=== PATIENT | female | born 1975 | race Caucasian/White ===

== ENCOUNTER 2017-07-26 17:55 | Inpatient (IN) | payer OTHER ==
[2017-07-26] MEDS: DEXTROSE 5%-LACTATED RINGERS 1,000 ML IV SCH ×2 (18:25→18:54)
[2017-07-26] MEDS: DEXTROSE 5%-LACTATED RINGERS 1,000 ML IV ONE ×2 (18:25→18:55)
[2017-07-26] MEDS ORDERED: AMPICILLIN SODIUM 2 GM VIAL ONE (18:26)
[2017-07-26] MEDS ORDERED: BUTORPHANOL TARTRATE 1 MG/ML VIAL IVPUSH ONE (18:30)
[2017-07-26] MEDS ORDERED: PROMETHAZINE HCL 25 MG/1 ML VIAL IVPUSH ONE (18:30)
[2017-07-26] MEDS ORDERED: AMPICILLIN - 2 GM in SODIUM CHLORIDE 100 ML IVPB ONE (18:30)
[2017-07-26 18:47] VITALS: BMI 25.7
[2017-07-26 20:08] LABS: BASO % 0.2 % (0-2.0); HEMATOCRIT 38.2 % (32.4-45.2); HEMOGLOBIN 12.7 GM/dL (10.7-15.3); LYMPH % 8.1 % (8-40); MCH 27.8 pg (25.7-33.7); MCHC 33.1 g/dl (32.0-36.0); MEAN CELL VOLUME 83.9 fl (80-96); MEAN PLT VOLUME 7.3 fl (7.5-11.1); MONO % 2.2 % (3.8-10.2); NEUT % 89.5 % (42.8-82.8); PLATELET COUNT 255 K/MM3 (134-434); RBC 4.55 M/mm3 (3.60-5.2); RDW 13.6 % (11.6-15.6); WHITE BLOOD COUNT 17.5 K/mm3 (4.0-10.0)
[2017-07-26 20:09] LABS: RETICULOCYTES 2.01 % (0.5-1.5)
[2017-07-26 20:21] LABS: ANION GAP 15 (8-16); BLOOD UREA NITROGEN 9 mg/dL (7-18); CALCIUM 7.9 mg/dL (8.5-10.1); CHLORIDE 99 mmol/L (98-107); CO2 16 mmol/L (21-32); CREATININE 0.6 mg/dL (0.55-1.02); GLUCOSE,RANDOM 125 mg/dL (74-106); POTASSIUM 3.6 mmol/L (3.5-5.1); SODIUM 130 mmol/L (136-145); URIC ACID 4.9 mg/dL (2.6-7.2)
[2017-07-26 20:22] LABS: GAMMA GLUTAMYL TRANSPEPTIDASE 15 U/L (5-85); INR 0.93 (0.82-1.09); PROTHROMBIN TIME (PATIENT) 10.5 SEC (9.98-11.88); SGOT/AST 15 U/L (15-37); SGPT/ALT 16 U/L (12-78)
[2017-07-26 20:24] LABS: ACTIVATED PTT 30.8 SECONDS (26.9-34.4)
[2017-07-26] MEDS ORDERED: OXYTOCIN 30 UNITS in 0.9% NS 30 UNIT/500 ML INFUS.BAG IVPB ONE (20:43)
--- NOTE | 2017-07-26 20:55 | PN ---
Progress Note (short form) - Note Progress Note: 845 pm cx 8 cm 80 vx -2 arom, light mec , fhr cat 1, irrgular contraction, no progress for 2/1/2 hour pitocin rba discussed
--- NOTE | 2017-07-26 21:01 | HP ---
Past Medical History - Primary Care Physician PCP:: Olman Jo - Admission Chief Complaint: 38,3 weeks, labor, AMA History of Present Illness: 42 yo f edc by sono3 , 38.3 weeks, in labor, no rom, no bleeding , cx on admission 8 cm vx -3 mi, bulging , fhr cat 1, irregular contraction History Source: Patient Limitations to Obtaining History: Language Barrier - Past Medical History ...: 3 ...Para: 0 ...Term: 0 ...: 0 ...Spon : 2 ...Induced : 0 ...Multiple Gestation: 0 ...LMP: 10/29/16 ... Weeks Gestation by Dates: 38.3 ...EDC by Dates: 08/05/17 ...EDC by Sono: 08/05/17 Additional OB History: elevated i hr gct , 3 hr normal. positve quantiferon - Past Surgical History Hx Myomectomy: No Hx Transabdominal Cerclage: No - Smoking History Smoking history: Never smoked Have you smoked in the past 12 months: No - Alcohol/Substance Use Hx Alcohol Use: No - Social History History of Recent Travel: No Home Medications - Allergies Allergies/Adverse Reactions: Allergies Allergy/AdvReac Type Severity Reaction Status Date / Time No Known Allergies Allergy Verified 07/26/17 18:29 - Home Medications Home Medications: Ambulatory Orders Ferrous Sulfate [Feosol] 325 mg PO DAILY 07/26/17 Vit/Iron Fum/Folic AC [ Tablet] 1 tab PO DAILY 07/26/17 Review of Systems - Review of Systems Constitutional: reports: No Symptoms Eyes: reports: No Symptoms HENT: reports: No Symptoms Neck: reports: No Symptoms Cardiovascular: reports: No Symptoms Respiratory: reports: No Symptoms Gastrointestinal: reports: No Symptoms Genitourinary: reports: No Symptoms Breasts: reports: No Symptoms Reported Musculoskeletal: reports: No Symptoms Integumentary: reports: No Symptoms Neurological: reports: No Symptoms Endocrine: reports: No Symptoms Hematology/Lymphatic: reports: No Symptoms Psychiatric: reports: No Symptoms Physical Exam - Maternity Vital Signs: Vital Signs Temperature 98.5 F 07/26/17 20:00 Pulse Rate 115 H 07/26/17 20:00 Respiratory Rate 20 07/26/17 20:00 Blood Pressure 152/97 07/26/17 20:00 O2 Sat by Pulse Oximetry (%) Constitutional: Yes: Well Nourished, No Distress, Calm Eyes: Yes: WNL, Conjunctiva Clear, EOM Intact HENT: Yes: WNL, Atraumatic, Normocephalic Neck: Yes: WNL, Supple, Trachea Midline Cardiovascular: Yes: WNL, Regular Rate and Rhythm Breast(s): Yes: WNL - Abdominal Exam/OB Number of Fetuses: Single Presentation: Vertex Contractions: Yes Regularity: Irregular Intensity: Mod/Strong Monitor Mode: External Heart Rate Location: LLQ Accelerations: Uniform Decelerations: None - Vaginal Exam/OB Vaginal Bleediing: No Speculum Exam: No Dilatation (cm): 8 cm Effacement (%): 80 Amniotic Membrane Status: Bulging Presentation: Vertex/Position Station: -3 - Physical Exam Edema: LLE: Trace, RLE: Trace Deep Tendon Reflex Grade: Normal +2 - Labs Lab Results: CBC, BMP 07/26/17 19:30 07/26/17 19:30 Hemorrhage Risk Assessment - Risk Factors Medium Risk Factors: Yes: None High Risk Factors: Yes: None Risk Score: 1 Risk Level: Medium Risk Problem List - Problems (1) with 38 completed weeks gestation Code(s): Z3A.38 - 38 WEEKS GESTATION OF (2) Advanced maternal age (AMA), 40 years or greater Code(s): VQY0365 - (3) Labor established Code(s): PNK9516 - Assessment/Plan plan admit for vaginal delivery
[2017-07-26] MEDS ORDERED: OXYTOCIN 30 UNITS in 0.9% NS 30 UNIT/500 ML INFUS.BAG IVPB SCH (21:30)
[2017-07-26] MEDS: AMPICILLIN - 1 GM in SODIUM CHLORIDE 100 ML IVPB SCH (22:00)
[2017-07-26] MEDS ORDERED: AMPICILLIN SODIUM 1 GM VIAL ONE (22:15)
[2017-07-26] MEDS ORDERED: BUTORPHANOL TARTRATE 1 MG/ML VIAL ONE ×2 (23:55)
[2017-07-26] MEDS ORDERED: PROMETHAZINE HCL 25 MG/1 ML VIAL ONE (23:58)
[2017-07-27] MEDS: AMPICILLIN - 1 GM in SODIUM CHLORIDE 100 ML IVPB SCH ×2 (02:00→06:27)
[2017-07-27] MEDS ORDERED: AMPICILLIN SODIUM 1 GM VIAL ONE (02:15)
[2017-07-27] MEDS ORDERED: ceFAZolin SODIUM 1 GM VIAL ONE (02:59)
[2017-07-27] MEDS ORDERED: ELECTROLYTE-148 SOLN 500 ML IV ONE (03:00)
[2017-07-27] MEDS ORDERED: CITRIC ACID/SODIUM CITRATE 30 ML UNIT-DOSE CUP PO ONE (03:00)
[2017-07-27] MEDS ORDERED: OXYTOCIN 20 UNITS in 0.9% NS 20 UNIT/1,000 ML INFUS.BAG IV ONE (03:05)
[2017-07-27] MEDS ORDERED: morphine SULFATE/Preservative Free 0.5 MG/ML (1cc Syringe) ONE (03:11)
[2017-07-27] MEDS ORDERED: ELECTROLYTE-148 SOLN 1,000 ML IV SCH (03:30)
[2017-07-27] MEDS ORDERED: BENZOCAINE 20% 57 GM BOTTLE TP PRN (03:47)
[2017-07-27] MEDS ORDERED: diphenhydrAMINE HCL 25 MG CAPSULE (FP) PO PRN (03:47)
[2017-07-27] MEDS ORDERED: IBUPROFEN 600 MG TABLET (FP) PO PRN (03:47)
[2017-07-27] MEDS ORDERED: BENZOCAINE 28 GM HEMORRHOIDAL OINTMENT PR PRN (03:47)
[2017-07-27] MEDS ORDERED: IBUPROFEN 800 MG/8 ML IJ IVPB PRN (03:47)
[2017-07-27] MEDS ORDERED: WITCH HAZEL 50% (TUCKS) 40 PAD/JAR PAD TP PRN (03:47)
[2017-07-27] MEDS ORDERED: METHYLERGONOVINE MALEATE 0.2 MG/1 ML AMP IM PRN (03:47)
[2017-07-27] MEDS ORDERED: oxyCODONE HCL 5 MG TABLET PO PRN (03:47)
--- NOTE | 2017-07-27 03:47 | PN ---
Progress Note (short form) - Note Progress Note: cx full 100 vx 0 , no descent with pushing , tachy , advised c/s, rba discussed Problem List - Problems (1) with 38 completed weeks gestation Code(s): Z3A.38 - 38 WEEKS GESTATION OF (2) Advanced maternal age (AMA), 40 years or greater Code(s): XNW9355 - (3) Labor established Code(s): [id number] -
[2017-07-27] MEDS ORDERED: DEXTROSE 5%-LACTATED RINGERS 1,000 ML IV SCH (04:00)
[2017-07-27] MEDS ORDERED: OXYTOCIN 20 UNITS in 0.9% NS 20 UNIT/1,000 ML INFUS.BAG IV SCH (04:00)
[2017-07-27] MEDS ORDERED: morphine SULFATE/Preservative Free 0.5 MG/ML (1cc Syringe) SPIN ONE (04:41)
[2017-07-27] MEDS ORDERED: ONDANSETRON 4 MG/2 ML VIAL IVPUSH PRN (04:41)
[2017-07-27 05:18] LABS: ARTERIAL BLOOD GAS BASE EXCESS -6.1 meq/l (-2-2); ARTERIAL BLOOD GAS PCO2 58.2 mmHg (35-45)
[2017-07-27 05:26] LABS: VENOUS PC02 41.6 mmHg (38-52); VENOUS PH 7.28 (7.32-7.42); VENOUS PO2 29.5 mmHg (28-48)
[2017-07-27 05:28] LABS: ARTERIAL BLD GAS O2 SATURATION 16.5 % (90-98.9); ARTERIAL BLOOD GAS PO2 16.1 mmHg (80-100); ARTERIAL BLOOD GAS pH 7.21 (7.35-7.45)
--- NOTE | 2017-07-27 08:26 | OP ---
DATE OF OPERATION: 07/27/2017 PREOPERATIVE DIAGNOSES: , 38.6 weeks' gestation, labor, advanced maternal age, and failure to descend in the second stage of labor, meconium amniotic fluid. POSTOPERATIVE DIAGNOSES: , 38.6 weeks' gestation, labor, advanced maternal age, and failure to descend in the second stage of labor, meconium amniotic fluid. PROCEDURE: Primary low-segment transverse section. SURGEON: Olman Jo MD MEDICAL REPRESENTATIVE: PETER Domingo ANESTHESIA: Spinal. ANESTHESIOLOGIST: Dr. Christianson ESTIMATED BLOOD LOSS: 500 mL FINDINGS: A live baby girl, Apgars 9 and 9. OPERATING COURSE: Patient was taken to the operating room. Under adequate spinal anesthesia, abdomen and perineum were prepped and draped. Pfannenstiel abdominal skin incision was made. Abdominal wall was cut layer by layer until peritoneum was exposed and incised. Upon entering the abdominal cavity, lower uterine segment was identified and uterovesical fold of peritoneum established. Bladder was pushed down. Then, with the lower blade of the Raimundo retractor in the pelvis, a low transverse uterine incision was made. Incision extended laterally. With the bandage scissors, amniotic sac was entered. Meconium amniotic fluid noted. Baby's head was in occiput posterior position with the cord around the neck x1 which was reduced. Baby delivered without any difficulty. Placenta was delivered manually. Uterine cavity was cleaned of all remaining tissue. Uterine incision was closed in 2 layers, first layer with 0 Biosyn continuous suture, the second layer with 0 Biosyn imbricating the first layer. Bladder flap was closed with 0 Biosyn continuous suture. Both tubes and ovaries were checked, were normal. No active bleeding was seen. All the lap, sponge, and instrument counts were correct. Then, peritoneum was closed with 0 Biosyn continuous suture. Muscles were brought together with interrupted suture of 0 Biosyn. Fascia was closed with 0 Biosyn continuous suture, subcutaneous fat with interrupted suture of 0 Biosyn, and the skin was closed with jaqui. Patient tolerated the procedure well, left the OR in good condition. Donovan [id number]
--- NOTE | 2017-07-27 09:35 | PN ---
Progress Note (short form) - Note Progress Note: Anestehsiology Post-op 42 y.o. female POD#0 s/p primary C/S under spinal anesthesia. RN states that pt. has been tachycardic to 130bpm this morning; she is afebrile and did not have above average EBL. She is receiving IV fluid. The patient has no complaints except for occasional itching. Pt. is feeling well, pain is well- managed. Pt. is able to move legs and denies h/a. On manual palpation of pulse, HR is about 100bpm. Stable post-operative course. Continue management per primary team.
[2017-07-27] MEDS: CEFAZOLIN 1 GM PUSH 1 GM/10 ML DISP.SYRIN IVPUSH SCH ×2 (09:41→17:27)
[2017-07-28] MEDS ORDERED: BISACODYL 10 MG SUPP.RECT PR PRN (03:47)
--- NOTE | 2017-07-28 08:03 | PN ---
Post Progress Note - Subjective Subjective: no c/o pain voiding without difficulty Post Day: 1 Type of Delivery: Primary C/S Vital Signs: Vital Signs Temperature 98.3 F 07/28/17 06:00 Pulse Rate 94 H 07/28/17 06:00 Respiratory Rate 18 07/28/17 06:00 Blood Pressure 123/81 07/28/17 06:00 O2 Sat by Pulse Oximetry (%) 99 07/27/17 05:20 Breast Exam: Yes: Soft, Other (Bf, & pumping). No: Engorged Uterus: Yes: Fundus Firm, Fundus below umbilicus, Non-tender Incision: Yes: Dressing dry and intact. No: Oozing Abdomen/GI: Yes: Abdomen soft (bs active), Passing flatus, Tolerating PO (diet) . No: Abdominal Distention, Tender Lochia: Yes: Rubra Lochia, amount: Moderate Extremities: Yes: Calves non-tender Perineum: Yes: Intact Activity: Ambulating - Labs Labs: CBC WBC 17.5 K/mm3 (4.0-10.0) H 07/26/17 19:30 RBC 4.55 M/mm3 (3.60-5.2) 07/26/17 19:30 Hgb 12.7 GM/dL (10.7-15.3) 07/26/17 19:30 Hct 38.2 % (32.4-45.2) 07/26/17 19:30 MCV 83.9 fl (80-96) 07/26/17 19:30 MCH 27.8 pg (25.7-33.7) 07/26/17 19:30 MCHC 33.1 g/dl (32.0-36.0) 07/26/17 19:30 RDW 13.6 % (11.6-15.6) 07/26/17 19:30 Plt Count 257 K/MM3 (134-434) 07/26/17 19:30 MPV 7.3 fl (7.5-11.1) L 07/26/17 19:30 Neutrophils % 89.5 % (42.8-82.8) H 07/26/17 19:30 Lymphocytes % 8.1 % (8-40) 07/26/17 19:30 Monocytes % 2.2 % (3.8-10.2) L 07/26/17 19:30 Eosinophils % 0.0 % (0-4.5) 07/26/17 19:30 Basophils % 0.2 % (0-2.0) 07/26/17 19:30 Retic Count 2.01 % (0.5-1.5) H 07/26/17 19:30 Other Findings, Remarks: urine i/o 4800/5000 Rs cta Assessment/Plan s/p primary c/section stab;e Plan : ct Po care encourage ambulation,deep breathing , po fluids [o cbc today pending
[2017-07-28 08:29] LABS: BASO % 0.4 % (0-2.0); EOS % 0.4 % (0-4.5); HEMATOCRIT 33.9 % (32.4-45.2); HEMOGLOBIN 11.1 GM/dL (10.7-15.3); LYMPH % 14.2 % (8-40); MCHC 32.8 g/dl (32.0-36.0); MEAN CELL VOLUME 85.2 fl (80-96); MEAN PLT VOLUME 6.7 fl (7.5-11.1); MONO % 6.9 % (3.8-10.2); NEUT % 78.1 % (42.8-82.8); PLATELET COUNT 237 K/MM3 (134-434); RBC 3.98 M/mm3 (3.60-5.2); RDW 13.8 % (11.6-15.6)
[2017-07-28] MEDS: ENOXAPARIN NA (PORCINE) 40 MG/0.4 ML DISP.SYRIN SQ SCH (09:16)
[2017-07-28] MEDS ORDERED: DIPHTH,PERTUSS(ACELL),TET 0.5 ML DISP.SYRIN IM ONE (11:15)
[2017-07-28] MEDS: ACETAMINOPHEN 325 MG TABLET (FP) PO PRN (20:05)
[2017-07-28] MEDS: SIMETHICONE 80 MG TAB.CHEW (FP) PO PRN (20:06)
--- NOTE | 2017-07-29 08:31 | PN ---
Post Progress Note - Subjective Subjective: pain scale 4-5 voiding without difficulty Post Day: 2 Type of Delivery: Primary C/S Vital Signs: Vital Signs Temperature 98.1 F 07/29/17 05:57 Pulse Rate 86 07/29/17 05:57 Respiratory Rate 18 07/29/17 05:57 Blood Pressure 136/88 07/29/17 05:57 O2 Sat by Pulse Oximetry (%) 99 07/28/17 20:36 Breast Exam: Yes: Soft. No: Engorged Uterus: Yes: Fundus Firm, Fundus below umbilicus, Non-tender Incision: Yes: Dressing dry and intact (to be changed ). No: Redness, Oozing Abdomen/GI: Yes: Abdomen soft, Passing flatus, Tolerating PO (diet). No: Abdominal Distention, Tender Lochia: Yes: Rubra Lochia, amount: Moderate Extremities: Yes: Calves non-tender Perineum: Yes: Intact Activity: Ambulating - Labs Labs: CBC WBC 14.0 K/mm3 (4.0-10.0) H 07/28/17 07:20 RBC 3.98 M/mm3 (3.60-5.2) 07/28/17 07:20 Hgb 11.1 GM/dL (10.7-15.3) D 07/28/17 07:20 Hct 33.9 % (32.4-45.2) 07/28/17 07:20 MCV 85.2 fl (80-96) 07/28/17 07:20 MCH 28.0 pg (25.7-33.7) 07/28/17 07:20 MCHC 32.8 g/dl (32.0-36.0) 07/28/17 07:20 RDW 13.8 % (11.6-15.6) 07/28/17 07:20 Plt Count 237 K/MM3 (134-434) 07/28/17 07:20 MPV 6.7 fl (7.5-11.1) L 07/28/17 07:20 Neutrophils % 78.1 % (42.8-82.8) 07/28/17 07:20 Lymphocytes % 14.2 % (8-40) D 07/28/17 07:20 Monocytes % 6.9 % (3.8-10.2) D 07/28/17 07:20 Eosinophils % 0.4 % (0-4.5) D 07/28/17 07:20 Basophils % 0.4 % (0-2.0) 07/28/17 07:20 Retic Count 2.01 % (0.5-1.5) H 07/26/17 19:30 Haptoglobin 134 mg/dL (34-200) 07/26/17 19:30 Assessment/Plan stable plan ct po care
[2017-07-29] MEDS: ENOXAPARIN NA (PORCINE) 40 MG/0.4 ML DISP.SYRIN SQ SCH (09:14)
[2017-07-29] MEDS: SIMETHICONE 80 MG TAB.CHEW (FP) PO PRN ×2 (12:48→20:24)
[2017-07-29] MEDS: ACETAMINOPHEN 325 MG TABLET (FP) PO PRN ×2 (12:48→20:23)
[2017-07-29] MEDS: oxyCODONE HCL 5 MG TABLET PO PRN ×2 (12:48→20:24)
[2017-07-29] MEDS ORDERED: SENNOSIDES/DOCUSATE COMBO (SENNA PLUS) TABLET (UD) PO PRN (22:00)
--- NOTE | 2017-07-30 06:11 | PN ---
Post Progress Note - Subjective Subjective: no c/o headache or dizziness pain scale 3/10 Post Day: 3 Type of Delivery: Primary C/S Vital Signs: Vital Signs Temperature 98.6 F 07/29/17 21:00 Pulse Rate 90 07/30/17 05:51 Respiratory Rate 18 07/30/17 05:51 Blood Pressure 140/75 07/30/17 05:51 O2 Sat by Pulse Oximetry (%) 99 07/28/17 20:36 Selected Entries 07/29/17 07/30/17 21:00 02:00 Blood Pressure 144/93 149/95 Breast Exam: Yes: Soft, Other (BF ). No: Engorged Uterus: Yes: Fundus Firm, Fundus below umbilicus Incision: Yes: [place] intact. No: Redness, Oozing Abdomen/GI: Yes: Abdomen soft, Passing flatus (bm not done ), Tolerating PO ( diet). No: Abdominal Distention, Tender Lochia: Yes: Rubra Lochia, amount: Moderate Extremities: Yes: Calves non-tender Perineum: Yes: Intact Activity: Ambulating - Labs Labs: CBC WBC 14.0 K/mm3 (4.0-10.0) H 07/28/17 07:20 RBC 3.98 M/mm3 (3.60-5.2) 07/28/17 07:20 Hgb 11.1 GM/dL (10.7-15.3) D 07/28/17 07:20 Hct 33.9 % (32.4-45.2) 07/28/17 07:20 MCV 85.2 fl (80-96) 07/28/17 07:20 MCH 28.0 pg (25.7-33.7) 07/28/17 07:20 MCHC 32.8 g/dl (32.0-36.0) 07/28/17 07:20 RDW 13.8 % (11.6-15.6) 07/28/17 07:20 Plt Count 237 K/MM3 (134-434) 07/28/17 07:20 MPV 6.7 fl (7.5-11.1) L 07/28/17 07:20 Neutrophils % 78.1 % (42.8-82.8) 07/28/17 07:20 Lymphocytes % 14.2 % (8-40) D 07/28/17 07:20 Monocytes % 6.9 % (3.8-10.2) D 07/28/17 07:20 Eosinophils % 0.4 % (0-4.5) D 07/28/17 07:20 Basophils % 0.4 % (0-2.0) 07/28/17 07:20 Retic Count 2.01 % (0.5-1.5) H 07/26/17 19:30 Haptoglobin 134 mg/dL (34-200) 07/26/17 19:30 Assessment/Plan s/p c/section labile hypertension is noted, she is asymptomatic will do work up cmp, uric acid , urine protein /cr ratio Plan place on PO Labetalol 100 mg q 8h prn if BP > or = to 140/90
[2017-07-30 07:31] LABS: BASO % 0.3 % (0-2.0); EOS % 3.3 % (0-4.5); HEMATOCRIT 39.3 % (32.4-45.2); HEMOGLOBIN 13.1 GM/dL (10.7-15.3); MCH 27.7 pg (25.7-33.7); MCHC 33.3 g/dl (32.0-36.0); MEAN CELL VOLUME 83.3 fl (80-96); MEAN PLT VOLUME 6.4 fl (7.5-11.1); MONO % 4.1 % (3.8-10.2); NEUT % 77.3 % (42.8-82.8); PLATELET COUNT 326 K/MM3 (134-434); RBC 4.72 M/mm3 (3.60-5.2); RDW 13.7 % (11.6-15.6); WHITE BLOOD COUNT 12.3 K/mm3 (4.0-10.0)
[2017-07-30 08:18] LABS: ALBUMIN 2.6 g/dl (3.4-5.0); ALK PHOS 164 U/L (45-117); ANION GAP 8 (8-16); BILIRUBIN,TOTAL 0.7 mg/dL (0.2-1.0); BLOOD UREA NITROGEN 7 mg/dL (7-18); CALCIUM 7.8 mg/dL (8.5-10.1); CHLORIDE 104 mmol/L (98-107); CO2 26 mmol/L (21-32); CREATININE 0.6 mg/dL (0.55-1.02); GLUCOSE,RANDOM 81 mg/dL (74-106); POTASSIUM 3.6 mmol/L (3.5-5.1); SGOT/AST 38 U/L (15-37); SGPT/ALT 39 U/L (12-78); SODIUM 138 mmol/L (136-145); TOT PROT 6.3 g/dl (6.4-8.2); URIC ACID 4.3 mg/dL (2.6-7.2)
[2017-07-30 08:47] LABS: URINE CREATININE 27.9 mg/dL (20-320)
[2017-07-30 09:10] LABS: RATIO URIN PROTEIN/URIN CREAT 0.9677 MG/DL
[2017-07-30] MEDS: ENOXAPARIN NA (PORCINE) 40 MG/0.4 ML DISP.SYRIN SQ SCH (09:23)
[2017-07-30] MEDS: oxyCODONE HCL 5 MG TABLET PO PRN ×2 (10:31→17:01)
[2017-07-30] MEDS: SIMETHICONE 80 MG TAB.CHEW (FP) PO PRN (10:32)
[2017-07-30] MEDS: ACETAMINOPHEN 325 MG TABLET (FP) PO PRN ×2 (10:32→17:02)
[2017-07-30] MEDS: LABETALOL HCL 100 MG TABLET (FP) PO PRN (18:03)
[2017-07-31] MEDS: LABETALOL HCL 100 MG TABLET (FP) PO PRN (04:55)
--- NOTE | 2017-07-31 07:19 | PN ---
Post Progress Note - Subjective Subjective: no headache or blurry vision Post Day: 4 Type of Delivery: Primary C/S Vital Signs: Vital Signs Temperature 98.4 F 07/30/17 22:00 Pulse Rate 91 H 07/31/17 06:00 Respiratory Rate 18 07/31/17 06:00 Blood Pressure 134/93 07/31/17 06:00 O2 Sat by Pulse Oximetry (%) 99 07/28/17 20:36 Breast Exam: Yes: Soft Uterus: Yes: Fundus Firm Incision: Yes: Pamela intact Abdomen/GI: Yes: Abdomen soft Lochia: Yes: Rubra Lochia, amount: Small Extremities: Yes: Calves non-tender Perineum: Yes: Intact Activity: Ambulating - Labs Labs: CBC WBC 12.3 K/mm3 (4.0-10.0) H 07/30/17 06:00 RBC 4.72 M/mm3 (3.60-5.2) 07/30/17 06:00 Hgb 13.1 GM/dL (10.7-15.3) D 07/30/17 06:00 Hct 39.3 % (32.4-45.2) D 07/30/17 06:00 MCV 83.3 fl (80-96) 07/30/17 06:00 MCH 27.7 pg (25.7-33.7) 07/30/17 06:00 MCHC 33.3 g/dl (32.0-36.0) 07/30/17 06:00 RDW 13.7 % (11.6-15.6) 07/30/17 06:00 Plt Count 326 K/MM3 (134-434) D 07/30/17 06:00 MPV 6.4 fl (7.5-11.1) L 07/30/17 06:00 Neutrophils % 77.3 % (42.8-82.8) 07/30/17 06:00 Lymphocytes % 15.0 % (8-40) 07/30/17 06:00 Monocytes % 4.1 % (3.8-10.2) 07/30/17 06:00 Eosinophils % 3.3 % (0-4.5) D 07/30/17 06:00 Basophils % 0.3 % (0-2.0) 02/26/18 06:00 Retic Count 2.01 % (0.5-1.5) H 07/26/17 19:30 Haptoglobin 134 mg/dL (34-200) 07/26/17 19:30 Assessment/Plan dc today to be sen on sunday for staple removal and bp check
[2017-07-31] MEDS: ENOXAPARIN NA (PORCINE) 40 MG/0.4 ML DISP.SYRIN SQ SCH (09:02)
[2017-07-31 11:06] VITALS: BP 129/85; PULSE 87; TEMP 97.8
--- NOTE | 2017-07-31 14:03 | PATH ---
Surgical Pathology Report Patient Name: MARIANGEL MERIDA Med. Rec. 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 Specimen(s) Received PLACENTA Clinical History Failure to descend, tachycardia, meconium Final Diagnosis PLACENTA, SECTION: 479 G THIRD TRIMESTER PLACENTA WITH TRIVASCULAR UMBILICAL CORD, FOCAL INTRAPARENCHYMAL INFARCT (~20% OF PLACENTAL SURFACE), AND MILD FOCAL ACUTE CHORIOAMNIONITIS. Electronically Signed Edyta Galan M.D. Gross Description The specimen is received fresh labeled placenta and is a 479 gram, 16.0 x 13.0 x 2.2 cm. placenta with attached membranes and umbilical cord. The attached membranes are nelson, translucent with focal opacities and insert marginally. The umbilical cord measures 28 cm. in length and averages 1 cm. in diameter. The cord inserts eccentrically, 3.5 cm. to the nearest margin. No true knots or strictures are identified. Cut surface of the umbilical cord reveals 3 vessels. The surface is kern blue with moderate fibrin deposition and appropriate caliber vessels. The maternal surface is red-brown with focal defects. Sectioning reveals 2 intraparenchymal lesions measuring 1.0 and 2.0 cm in greatest dimension. The remaining placental parenchyma is red-brown and spongy. Medication Aid sections are submitted in 5 cassettes as follows: 1-membrane roll and umbilical cord; 2-3-lesions; 9-1-rfir-thickness sections of placenta. 07/30/201707/30/2017
--- NOTE | 2017-08-02 22:08 | DS ---
Physical Exam-EYEWEAR CONSULTANT Vital Signs: Vital Signs Temperature 97.8 F 07/31/17 10:00 Pulse Rate 87 07/31/17 10:00 Respiratory Rate 20 07/31/17 10:00 Blood Pressure 129/85 07/31/17 10:00 O2 Sat by Pulse Oximetry (%) 99 07/28/17 20:36 Constitutional: Yes: Well Nourished, No Distress, Calm Eyes: Yes: WNL, Conjunctiva Clear, EOM Intact HENT: Yes: WNL, Atraumatic, Normocephalic Neck: Yes: WNL, Supple, Trachea Midline Cardiovascular: Yes: WNL, Regular Rate and Rhythm Respiratory: Yes: WNL, Regular, CTA Bilaterally Gastrointestinal: Yes: WNL ...Rectal Exam: Yes: WNL Renal/: Yes: WNL ....Post : Yes: Uterus firm, Uterus non-tender, Slight lochia rubra Breast(s): Yes: WNL Musculoskeletal: Yes: WNL Extremities: Yes: WNL Edema: No Integumentary: Yes: WNL Wound/Incision: Yes: Clean/Dry, Well Approximated, [place] Intact Neurological: Yes: WNL, Alert, Oriented ...Motor Strength: WNL Psychiatric: Yes: WNL, Alert, Oriented Labs: CBC, BMP 07/30/17 06:00 07/30/17 07:20 Delivery - Delivery Section: Low Flap Transverse (no complication) Type of Anesthesia: Spinal Episiotomy/Laceration: None EBL (cc): 500 Delivery, Single - Stages of Labor Date 1st Stage Initiatied: 07/26/17 Time 1st Stage Initiated: 16:30 Date 2nd Stage Initiated: 07/27/17 Time 2nd Stage Initiated: 02:20 Date of Delivery: 07/27/17 Time of Delivery: 04:01 Time Placenta Delivered: 04:02 Placenta: Yes: Expressed - Condition of Barrel Endshake Adjuster/Construction Scheduler Present: Yes Name: Meghana Ronquillo Gender: Female Weight: 6 lb 4 oz Position: OP Total Hours ROM (Hrs/Mins): [id number] - 1 Minute Total Score: 9 5 Minutes Total Score: 9 - Feeding Plan Initial Plan: Exclusive throughout hospitalization Discharge Summary Reason For Visit: ADMIT LABOR Procedures: Principal: LST c/s Condition: Good - Instructions Diet, Activity, Other Instructions: report on sunday for a blood pressure check and staple removal your prescription has been sent to [facility] Referrals: Olman Jo MD [Staff Physician] - 2 Weeks (Follow up [address] call for appointment. [phone]) Disposition: HOME - Home Medications Comprehensive Discharge Medication List: Ambulatory Orders Ferrous Sulfate [Feosol] 325 mg PO DAILY 07/26/17 Vit/Iron Fum/Folic AC [ Tablet] 1 tab PO DAILY 07/26/17 Acetaminophen W/ Codeine #3 [Tylenol # 3 -] 1 tab PO Q6H #20 tablet MDD 4 Ibuprofen [Motrin Ib] 600 mg PO TID #30 tablet 07/31/17 Labetalol HCl [Normodyne -] 100 mg PO TID #60 tablet 07/31/17
== END 2017-07-31 12:00 | disposition home or self-care (01) | DRG 540 ==
LOC: JDEL 17:55 → JLDR 18:15 → J3W 07-27 06:04
PROVIDERS: ADMIT Obstetrics & Gynecology; ATTEND Obstetrics & Gynecology
PROC: 10D00Z1 Extraction of Products of Conception, Low, Open Approach (ICD-10-PCS; principal; 2017-07-27)
DX: O32.4XX0 Maternal care for high head at term, not applicable or unspecified (principal); O77.0 Labor and delivery complicated by meconium in amniotic fluid; O69.81X0 Labor and delivery complicated by cord around neck, without compression, not applicable or unspecified; Z3A.38 38 weeks gestation of pregnancy; Z37.0 Single live birth
CPT/HCPCS: 36415; 36600; 71046-TC-FY; 80048; 80053; 82570; 82803; 82977; 83010; 84156; 84450; 84460; 84550; 85025; 85032; 85044; 85610; 85730; 86593; 86850; 86900; 86901; 88307-TC; 90715